=== PATIENT | male | born 1960 | race Caucasian/White ===

== ENCOUNTER 2024-01-31 11:16 | Observation (INO) ==
--- NOTE | 2024-01-31 12:09 | Emergency Department Note ---
Impression & Plan Acute pancreatitis, Acute upper abdominal pain, Elevated troponin ED Provider Note NAME: SHELIA VARELA AGE: 63 SEX: M : 1960 ARRIVES VIA: Walk-In INFORMANT: Patient, family member ED PROVIDER(S): Will Mary MD CHIEF COMPLAINT: Abdominal pain, nausea MEDICAL DECISION MAKING: Patient presented due to concern for abdominal pain. IV was established and blood work was obtained patient did receive IV morphine and IV fluids and IV Zofran. EKG and troponin obtained along with CT abdomen pelvis. Blood work shows a white count of 17 with a normal H&H and platelet count. Kidney function is unremarkable. Mild hyponatremia 135 Kos 145 and not DKA. Bilirubin 1.3. This is higher than prior. Patient has normal AST and ALT. Patient's initial troponin is 28. EKG does not show signs of obvious ischemia. Lipase is negative. Patient CT abdomen pelvis does show concern for pancreatitis. No fluid collections. Gallbladder distention but no pericholecystic infiltration. Patient does not have significant right upper quadrant pain. I informed the patient and the patient's family member the findings. They are comfortable plan of care. Patient's pancreatitis may be secondary to the patient's Ozempic use. The patient denies any recent or significant alcohol use I did speak with the on-call hospitalist service Dr. Persaud and the patient was admitted to the medicine service. Discussion w/ other healthcare providers: None Prior /Outside records reviewed: I reviewed a primary care visit from Desiree Ruiz from February 02, 2024. Patient was seen for wellness examination at that time. Known history of depression CAD BPH osteoarthritis hypertension dyslipidemia type 2 diabetes. Patient did have a dose change of his Zoloft from 50 to 100 mg. I did review a cardiac catheterization from Dr. Roberto from July 2023. I discussed the patient has mild to moderate nonocclusive CAD. Differential diagnosis: Appendicitis, testicular torsion, UTI, diverticulitis, obstruction, renal colic, mesenteric adenitis, enteririts, PUD, pancreatitis, biliary pathology, hernia, volvulus, constipation, as well as other pathologies were considered. Diagnostics, as interpreted by me: ECG:Normal sinus rhythm, rate of 63, normal intervals, normal axis no ST elevations. Q waves noted in lead III. Cardiac monitoring: An order was placed for continuous cardiac monitoring. The monitor shows a rate of 72 with sinus rhythm. Patient was placed on pulse oximetry Medical decision rules: None Imaging studies: I informally interpreted the patient's CT abdomen pelvis does not show obvious bowel obstruction with formal report to follow. HPI: Patient presents due to concern for abdominal pain that began on Tuesday. Seem to be worse yesterday slightly improved today but still present. It has been fairly constant located in the lower and right side of the abdomen. Patient denies any blood in the stool no dysuria or hematuria no scrotal pain or swelling. The patient denies any blood in urine or stool. Bowel movement yesterday. The patient denies any prior history of abdominal surgeries. No history of kidney stones. Patient did have nausea and associated dry heaves but denies bringing anything up. The patient does chew tobacco but denies any alcohol or drug use. No falls or trauma. He does relate that he was recently started on Ozempic and has received 5 or 6 total injections with the last 2 being an increased in dosage and he does receive them every Tuesday. PAST MEDICAL HISTORY: See Below PAST SURGICAL HISTORY: See Below SOCIAL HISTORY: See Below HOME MEDICATIONS: See Below ALLERGIES: See Below VITALS: See Below PHYSICAL EXAMINATION: GENERAL: NAD, non-toxic. EYE EXAM: Normal conjunctiva. PERRL, no anisocoria and EOM's grossly intact w/o pain. OROPHARYNX: Moist mucus membranes, grossly normal dentition. NECK: Trachea midline, no stridor. Supple, no nuchal rigidity, no adenopathy, non-tender. No signs of meningismus. FROM of the neck with good chin to chest and neck extension. LUNGS: Clear to auscultation. Normal chest wall mechanics. HEART: NSR, no MRG. ABDOMEN: Abdomen soft, non-tender, no masses, no rebound or guarding. BACK: No CVA TTP. SKIN: No rashes and no bruising. UPPER EXTREMITIES: Upper extremities are grossly normal. LOWER EXTREMITIES: Grossly normal, no edema. NEURO EXAM: A&O x3, cranial nerves II-XII grossly intact, normal speech, moves all 4 extremities. 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) Anxiety with depression (Chronic) Hypertension (Chronic) Dyslipidemia (Chronic) Type 2 diabetes mellitus (Chronic) Routine adult health maintenance (Chronic) Somatic dysfunction of lower extremity Medical History (Updated 01/31/24 @ 19:10 by Will Mary MD) History of left heart catheterization History of broken leg Dyslipidemia Osteoarthritis Hypertension Surgical History No history of previous surgery Family History Father Myocardial infarction Mother Ovarian cancer Brother Liver cancer Denies family history of Colon cancer Prostate cancer Breast cancer Social History Smoking Status: Never smoker Tobacco Type: Smokeless Tobacco (Dip or Chew) Age Started Using Tobacco: 16; Age Quit Using Tobacco: 49; packs per day: 1; Cigarettes Per Day: 20; Second Hand Exposure: No; Do You Dip or Chew Tobacco: Yes; Hx Alcohol Use: Yes Alcohol type: beer Alcohol Intake Frequency: Monthly or Less Hx Substance Use: No Preferred Language: Malawian Communication Ability: Effective Visual Impairment: No Limitations Hearing Ability: Normal Health Advocate Required: No Beliefs That Will Affect Care: None marital status: Current Living Situation: Alone current occupational status: employed current occupation: Human Resources Temp Feels Safe at Home: Yes Safety Concerns: Feels Safe At This Time Childhood Exposure to Second-Hand Smoke: Yes Diet: regular caffeine: Yes during the past year weight has: decreased > 10 lbs Dental Care, Regularly: Yes Physical Activity Frequency: Does not Exercise Seatbelt Use: always Sunscreen Use: Yes Assistive Devices: Glasses Allergies Allergies Allergy/AdvReac Type Severity Reaction Status Date / Time hydrochlorothiazide AdvReac Mild Verified 01/06/24 14:50 Home Meds Home Medications Medication Instructions Recorded Confirmed empagliflozin 25 mg tablet 25 mg PO DAILY 01/31/24 01/31/24 (Jardiance) insulin glargine 100 unit/mL (3 12 unit subcut PM 05/28/24 05/28/24 mL) subcutaneous pen (Basaglar KwshaheenPen U-100 Insulin) meloxicam 15 mg tablet 15 mg PO DAILY 01/31/24 01/31/24 Previous Rx's Medication Instructions Recorded fluticasone propionate 50 1 spray intranasal BID #16 grams 10/08/22 mcg/actuation nasal spray,suspension amlodipine 5 mg tablet 5 mg PO DAILY #30 tabs 07/07/23 aspirin 81 mg chewable tablet 81 mg PO DAILY #90 tabs 07/15/23 amitriptyline 50 mg tablet 50 mg PO DAILY #90 tabs 07/19/23 atorvastatin 10 mg tablet 10 mg PO DAILY #90 tabs 09/16/23 metoprolol tartrate 50 mg tablet 50 mg PO BID #180 tabs 09/20/23 hydrochlorothiazide 50 mg tablet 50 mg PO DAILY #30 tabs 10/06/23 glipizide 5 mg tablet, extended 5 mg PO BID #90 tabs 10/31/23 release 24 hr lisinopril 20 mg tablet 20 mg PO BID #180 tabs 11/02/23 baclofen 10 mg tablet 10 mg PO BID #60 tabs 12/16/23 diclofenac sodium 1 % topical gel 2 g topical QID PRN pain, moderate 12/16/23 #100 grams semaglutide 0.25 mg or 0.5 mg (2 See Rx Instructions subcut .weekly 12/16/23 mg/3 mL) subcutaneous pen injector #3 mL (Ozempic) potassium chloride 20 mEq 20 meq PO BID #60 tabs 01/03/24 tablet,extended release sertraline 100 mg tablet (Zoloft) 100 mg PO DAILY #90 tabs 01/06/24 tramadol 50 mg tablet 50 mg PO Q6H PRN pain #120 tabs 01/17/24 tamsulosin 0.4 mg capsule (Flomax) 0.8 mg (2 x 0.4 mg) PO DAILY #60 01/26/24 caps Results & Data (ED) Vital Signs Vital Signs - 24 hr 01/31/24 11:17 01/31/24 12:46 01/31/24 12:47 Temperature 36.6 C Temperature Source Oral Pulse Rate 73 77 Pulse Rate from SpO2 Sensor 65 Respiratory Rate 12 20 Respiratory Effort / Characteristics Non-Labored Respiratory Depth Normal Blood Pressure 131/83 Blood Pressure Mean 99 Pulse Oximetry 97 89 L 94 Oxygen Delivery Method Room Air Sepsis Recent Fever Within 48 Hours No Sepsis New/Unexplained Change in Mental Status N/A Sepsis Action Taken by Nursing No Action Required 01/31/24 13:00 01/31/24 13:40 01/31/24 14:00 Temperature Temperature Source Pulse Rate 71 72 68 Pulse Rate from SpO2 Sensor 59 L 72 68 Respiratory Rate 17 18 20 Respiratory Effort / Characteristics Respiratory Depth Blood Pressure Blood Pressure Mean Pulse Oximetry 95 94 94 Oxygen Delivery Method Sepsis Recent Fever Within 48 Hours Sepsis New/Unexplained Change in Mental Status Sepsis Action Taken by Nursing 01/31/24 14:23 01/31/24 14:23 01/31/24 14:30 Temperature Temperature Source Pulse Rate 69 Pulse Rate from SpO2 Sensor 68 Respiratory Rate 19 Respiratory Effort / Characteristics Respiratory Depth Blood Pressure 144/64 H 139/62 Blood Pressure Mean 105 96 Pulse Oximetry 94 Oxygen Delivery Method Sepsis Recent Fever Within 48 Hours Sepsis New/Unexplained Change in Mental Status Sepsis Action Taken by Nursing 01/31/24 14:30 01/31/24 15:00 01/31/24 15:00 Temperature Temperature Source Pulse Rate 68 67 Pulse Rate from SpO2 Sensor 68 67 Respiratory Rate 20 19 Respiratory Effort / Characteristics Respiratory Depth Blood Pressure 152/76 H Blood Pressure Mean 86 Pulse Oximetry 93 92 Oxygen Delivery Method Sepsis Recent Fever Within 48 Hours Sepsis New/Unexplained Change in Mental Status Sepsis Action Taken by Long Term Medications Current Medication List: was personally reviewed by me Laboratory Data Attestation: I reviewed the patient's lab results. 01/31/24 11:33 01/31/24 11:33 Lab Results 01/31/24 01/31/24 Range/Units 11:33 14:20 WBC 17.65 H (4.8-10.8) K/ul RBC 5.76 (4.70-6.10) M/uL Hgb 16.8 (14.0-18.0) g/dl Hct 49.5 (42.0-52.0) % MCV 85.9 (80.0-100.0) fL MCH 29.2 (25.0-34.0) pg MCHC 33.9 (32.0-36.0) g/dL RDW Std Deviation 40.7 (36.4-46.3) fL RDW Coeff of Allyson 13.2 (11.5-14.5) % Plt Count 273 (130-400) K/uL MPV 11.7 (9.4-12.4) fL Immature Gran % (Auto) 0.5 % Neut % (Auto) 86.7 % Lymph % (Auto) 7.1 % Bureau % (Auto) 5.4 % Eos % (Auto) 0.1 % Baso % (Auto) 0.2 % Neut # (Auto) 15.31 H (1.40-6.50) K/uL Lymph # (Auto) 1.26 (1.20-3.40) K/uL Bureau # (Auto) 0.95 H (0.11-0.59) K/uL Eos # (Auto) 0.01 (0.00-0.50) K/uL Baso # (Auto) 0.03 (0.00-0.20) K/uL Immature Gran # (Auto) 0.09 (0.01-0.20) K/uL Sodium 135 L (136-145) mmol/L Potassium 3.5 (3.5-5.1) mmol/L Chloride 93 L (98-107) mmol/L Carbon Dioxide 29 (21-32) mmol/L Anion Gap 13 H (3-11) BUN 11 (6-23) mg/dl Creatinine 0.78 (0.6-1.4) mg/dl Est Cr Clr Drug Dosing 115.4 ml/min Est GFR ( Amer) 112.1 ml/min Est GFR (Non-Af Amer) 96.7 ml/min BUN/Creatinine Ratio 14.1 (10-20) Glucose 145 H (70-99(Fasting)) mg/dl Calcium 9.6 (8.6-10.3) mg/dl Total Bilirubin 1.3 H (0.2-1.0) mg/dl AST 16 (13-39) U/L ALT 18 (7-52) U/L Alkaline Phosphatase 107 H (34-104) U/L Troponin I High Sens 28.3 H 12.8 D (0-20) pg/ml Total Protein 9.1 H (6.0-8.3) gm/dl Albumin 4.9 (3.4-5.0) gm/dl Globulin 4.2 H (2.5-4.0) gm/dl Albumin/Globulin Ratio 1.2 (0.9-2) Triglycerides 86 (0-150) mg/dl Lipase 79 (11-82) U/L Administered Medications Lactated Ringer's (Lr) 1,000 mls @ 200 mls/hr IV .Q5H DANYA Stop: 02/01/24 08:00 Last Admin: 01/31/24 18:31 Dose: 200 mls/hr Documented By: CAIT Insulin Aspart (Insulin Aspart Per Unit Charge) 0 units SC ACHS DANYA Stop: 03/01/24 17:00 Last Admin: 01/31/24 17:54 Dose: Not Given Documented By: CAIT Morphine Sulfate (Morphine Sulfate 2 Mg/Ml Carp) 2 mg IV Q3H PRN PRN Reason: Pain (1,2,3,4,5) & Pre PT Stop: 02/14/24 17:24 Last Admin: 01/31/24 17:52 Dose: 2 mg Documented By: CAIT Polyethylene Glycol (Polyethylene (Miralax) 17 Gm Pack) 17 gm PO DAILY DANYA Stop: 03/01/24 17:00 Last Admin: 01/31/24 18:10 Dose: 17 gm Documented By: CAIT Potassium Chloride (Potassium Chloride Crtab 20 Meq Tabcr) 20 meq PO BID DANYA Stop: 03/01/24 17:00 Last Admin: 01/31/24 17:52 Dose: 20 meq Documented By: CAIT Discontinued Medications Sodium Chloride (Nss) 500 mls @ 999 mls/hr IV .Q31M STA Stop: 01/31/24 13:01 Last Infusion: 01/31/24 13:34 Dose: Infused Documented By: Admin: 01/31/24 12:41 Dose: 999 mls/hr Documented By: DIVINA Lactated Ringer's (Lr) 1,000 mls @ 999 mls/hr IV .Q1H1M ONE Stop: 01/31/24 15:50 Last Infusion: 01/31/24 17:03 Dose: Infused Documented By: Admin: 01/31/24 15:47 Dose: 999 mls/hr Documented By: Infusion: 01/31/24 15:47 Dose: Infused Documented By: Admin: 01/31/24 14:59 Dose: 999 mls/hr Documented By: DIVINA Lactated Ringer's (Lr) 1,000 mls @ 999 mls/hr IV .Q1H1M ONE Stop: 01/31/24 16:42 Last Infusion: 01/31/24 18:39 Dose: Infused Documented By: Admin: 01/31/24 17:20 Dose: 999 mls/hr Documented By: CAIT Ioversol (Optiray 320 100ml) 94 ml IV ONCE ONE Stop: 01/31/24 13:35 Last Admin: 01/31/24 13:34 Dose: 94 ml Documented By: MORE Morphine Sulfate (Morphine Sulfate 4 Mg/Ml 1 Ml Carp\Vial) 4 mg IV NOW STA Stop: 01/31/24 12:32 Last Admin: 01/31/24 12:39 Dose: 4 mg Documented By: DIVINA Morphine Sulfate (Morphine Sulfate 4 Mg/Ml 1 Ml Carp\Vial) 4 mg IV NOW STA Stop: 01/31/24 14:45 Last Admin: 01/31/24 14:53 Dose: 4 mg Documented By: DIVINA Ondansetron HCl (Ondansetron Inj 2 Mg/Ml 2 Ml Vial) 4 mg IV NOW STA Stop: 01/31/24 12:32 Last Admin: 01/31/24 12:39 Dose: 4 mg Documented By: DIVINA Imaging Data Radiologist's Impression: Abdomen/Pelvis CT 01/31/24 12:31 CT OF THE ABDOMEN AND PELVIS WITH CONTRAST CLINICAL HISTORY: Right sided and bilateral lower abdominal pain. COMPARISON STUDY: None. TECHNIQUE: Following IV administration of 94 mL of Optiray, axial images of the abdomen and pelvis were obtained from the lung bases to the proximal femurs. Images were reviewed in the axial, sagittal, and coronal planes. IV contrast was administered without complication. Automated exposure control was utilized for the study. A dose lowering technique was utilized adhering to the principles of ALARA. CT DOSE: 1518.73 mGy.cm FINDINGS: Lung bases are unremarkable. No pneumatosis, free air or portal venous gas is present. There are no hepatic lesions. There is hepatic steatosis. No biliary or pancreatic ductal dilatation is present. The gallbladder is mildly distended without pericholecystic infiltration. Adrenal glands, kidneys and spleen are normal. Stranding centered on the uncinate process extending into the mesentery is noted. No peripancreatic fluid collections are present. There is no CT evidence for pancreatic necrosis. The appendix is normal. Is no evidence for a bowel obstruction. Colonic diverticulosis without evidence for acute diverticulitis. There is no lymphadenopathy. IMPRESSION: 1. Findings suggestive of acute pancreatitis. Stranding centered on the uncinate process extending into the mesentery. No peripancreatic fluid collections. No evidence for gland necrosis. No pancreatic ductal dilatation. 2. Hepatic steatosis. 3. Mild gallbladder distention. No pericholecystic infiltration to strongly suggest acute cholecystitis. 4. Normal appendix. No bowel obstruction. ACT 112: Negative or not required by law. Electronically signed by: Geoffrey Hughes M.D. 01/31/2024 2:02 PM Chest X-Ray 01/31/24 14:51 XR chest 1V portable CLINICAL HISTORY: abdominal pain TECHNIQUE: Single frontal radiograph of the chest was obtained. Comparison: None available at the time of this dictation. FINDINGS: No lines and tubes are seen. The cardiomediastinal silhouette is normal. The lungs are clear. No evidence of pleural effusion or pneumothorax. IMPRESSION: No acute chest disease. ACT 112: Negative or not required by law. Electronically signed by: Miller Beverly M.D. 01/31/2024 3:25 PM Discharge Plan Visit Data Chief Complaint: Abdominal Pain Stated Complaint: ABD PAIN, NAUSEA, LOSS OF APETIE ED Provider: Will Mary Discharge Problem: Acute pancreatitis, Acute upper abdominal pain, Elevated troponin Patient Disposition: Admitted As Inpatient Discharge Instructions Interventions: ED Discharge Assessment Last Done: 01/31/24 16:39 Discharge Problem: Acute pancreatitis Qualifiers: Pancreatitis type: drug induced Acute pancreatitis complication: no infection or necrosis Qualified Code(s): K85.30 - Drug induced acute pancreatitis without necrosis or infection
[2024-01-31] MEDS: MoRPHine SULFATE 4 MG/ML 1 ML CARP\\VIAL IV STA ×2 (12:39→14:53)
[2024-01-31] MEDS: ONDANSETRON INJ 2 MG/ML 2 ML VIAL IV STA (12:39)
[2024-01-31] MEDS: SODIUM CHLORIDE 0.9% 500 ML IV STA (12:41)
[2024-01-31 13:05] LABS: Basophils # (auto) 0.03 K/uL (0.00-0.20); Basophils % (auto) 0.2 %; Eosinophils # (auto) 0.01 K/uL (0.00-0.50); Eosinophils % (auto) 0.1 %; Hematocrit (blood only) 49.5 % (42.0-52.0); Hemoglobin 16.8 g/dl (14.0-18.0); Immature Granulocytes # (auto) 0.09 K/uL (0.01-0.20); Immature Granulocytes % (auto) 0.5 %; Lymphocytes # (auto) 1.26 K/uL (1.20-3.40); Lymphocytes % (auto) 7.1 %; Mean Corpuscular Hemoglobin 29.2 pg (25.0-34.0); Mean Corpuscular Hgb Conc 33.9 g/dL (32.0-36.0); Mean Corpuscular Volume 85.9 fL (80.0-100.0); Mean Platelet Volume 11.7 fL (9.4-12.4); Monocytes # (auto) 0.95 K/uL (0.11-0.59); Monocytes % (auto) 5.4 %; Neutrophils # (auto) 15.31 K/uL (1.40-6.50); Neutrophils % (auto) 86.7 %; Platelet Count 273 K/uL (130-400); RDW Coefficient of Variation 13.2 % (11.5-14.5); RDW Standard Deviation 40.7 fL (36.4-46.3); Red Blood Count 5.76 M/uL (4.70-6.10); White Blood Count 17.65 K/ul (4.8-10.8)
[2024-01-31 13:17] LABS: Albumin Globulin Ratio 1.2 (0.9-2); Albumin Level 4.9 gm/dl (3.4-5.0); BUN Creatinine Ratio 14.1 (10-20); Bilirubin,Total 1.3 mg/dl (0.2-1.0); Calcium 9.6 mg/dl (8.6-10.3); Creatinine Clr Calc Pharmacy 115.4 ml/min; Est GFR (African American) 112.1 ml/min; Est GFR (Non-African American) 96.7 ml/min; Globulin 4.2 gm/dl (2.5-4.0); Potassium 3.5 mmol/L (3.5-5.1); Total Protein 9.1 gm/dl (6.0-8.3)
[2024-01-31 13:24] LABS: Troponin I High Sensitivity 28.3 pg/ml (0-20)
[2024-01-31] MEDS: OPTIRAY 320 100ml IV ONE (13:34)
--- NOTE | 2024-01-31 14:03 | CT Scan Report ---
CT OF THE ABDOMEN AND PELVIS WITH CONTRAST CLINICAL HISTORY: Right sided and bilateral lower abdominal pain. COMPARISON STUDY: None. TECHNIQUE: Following IV administration of 94 mL of Optiray, axial images of the abdomen and pelvis we re obtained from the lung bases to the proximal femurs. Images were reviewed in the axial, sagittal, and coronal planes. IV contrast was administered without complication. Automated exposure control wa s utilized for the study. A dose lowering technique was utilized adhering to the principles of ALARA . CT DOSE: 1518.73 mGy.cm FINDINGS: Lung bases are unremarkable. No pneumatosis, free air or portal venous gas is present. Ther e are no hepatic lesions. There is hepatic steatosis. No biliary or pancreatic ductal dilatation is p resent. The gallbladder is mildly distended without pericholecystic infiltration. Adrenal glands, kid neys and spleen are normal. Stranding centered on the uncinate process extending into the mesentery i s noted. No peripancreatic fluid collections are present. There is no CT evidence for pancreatic necr osis. The appendix is normal. Is no evidence for a bowel obstruction. Colonic diverticulosis without evidence for acute diverticulitis. There is no lymphadenopathy. IMPRESSION: 1. Findings suggestive of acute pancreatitis. Stranding centered on the uncinate process extending in to the mesentery. No peripancreatic fluid collections. No evidence for gland necrosis. No pancreatic ductal dilatation. 2. Hepatic steatosis. 3. Mild gallbladder distention. No pericholecystic infiltration to strongly suggest acute cholecystit is. 4. Normal appendix. No bowel obstruction. ACT 112: Negative or not required by law. Electronically signed by: Geoffrey Hughes M.D. 01/31/2024 2:02 PM
[2024-01-31] MEDS: LACTATED RINGER'S 1,000 ML IV ONE ×2 (14:59→17:20)
--- NOTE | 2024-01-31 15:06 | History & Physical Report ---
Date of Service January 31, 2024 Assessment & Plan (1) Acute pancreatitis: Plan: Meets criteria for diagnosis with epigastric pain on exam and imaging changes although surprisingly lipase is normal ?subacute from Ozempic Recently started Ozempic in December - suspect most likely cause Triglycerides normal No significant alcohol use No obstructive cause on imaging and LFTs relatively unremarkable, repeat CMP in AM Addition 2L LR now then 150ml/hr overnight Clear liquid, T2DM diet - advance as tolerated, patient can direct diet advancement (2) Type 2 diabetes mellitus: Plan: Hemoglobin A1C 8.3 in December, no need to repeat Stop Ozempic Hold glipizide while on clears and treat with sliding scale NovoLog Switch Basaglar for Lantus 12 units HS due to hospital formulary (3) BPH w urinary obs/LUTS: Plan: Continue tamsulosin (4) Anxiety with depression: Plan: Continue sertraline (5) Hypertension: Plan: Amlodipine on hold since August Continue his other anti-hypertensives Plan VTE Prophylaxis - Lovenox 40mg SQ daily Diet - Clear liquid, T2DM Disposition - observation to med/tele Admission and Anticipated Discharge Date Admission Date: January 31, 2024 History of Present Illness Chief Complaint: Abdominal pain Primary Care Provider: Wilfredo Mcclain DO Terence Houser is a 63 year old male who presents to the ER with epigastric pain since Tuesday night. Progressively getting worse. Not eaten anything for the last 1.5 days. Dry heaves yesterday. Severity currently 4-5/10, 8/10 (before receiving any pain medication in the ER). No radiation. Cramps constantly. Feeling like cement in stomach. Mild constipation yesterday, hard stool, last time he went, uncommon for him. Lack of appetite. No current nausea. Associated dizziness this morning. Took all his usual morning medications. Takes Ozempic on Tuesday - just started this in December. No chest pain shortness of breath, odynophagia, dysphagia, sore throat, cough, cold, fever or chills. Alcohol once or twice a month a couple of beers. No marijuana. Allergies Allergy/AdvReac Type Severity Reaction Status Date / Time hydrochlorothiazide AdvReac Mild Verified 01/06/24 14:50 Home Medications Medication Instructions Recorded Confirmed Type fluticasone propionate 50 1 spray intranasal BID #16 grams 10/08/22 01/31/24 Rx mcg/actuation nasal spray,suspension amlodipine 5 mg tablet 5 mg PO DAILY #30 tabs 07/07/23 01/31/24 Rx aspirin 81 mg chewable tablet 81 mg PO DAILY #90 tabs 07/15/23 01/31/24 Rx amitriptyline 50 mg tablet 50 mg PO DAILY #90 tabs 07/19/23 01/31/24 Rx atorvastatin 10 mg tablet 10 mg PO DAILY #90 tabs 09/16/23 01/31/24 Rx metoprolol tartrate 50 mg tablet 50 mg PO BID #180 tabs 09/20/23 01/31/24 Rx hydrochlorothiazide 50 mg tablet 50 mg PO DAILY #30 tabs 10/06/23 01/31/24 Rx glipizide 5 mg tablet, extended 5 mg PO BID #90 tabs 10/31/23 01/31/24 Rx release 24 hr lisinopril 20 mg tablet 20 mg PO BID #180 tabs 11/02/23 01/31/24 Rx baclofen 10 mg tablet 10 mg PO BID #60 tabs 12/16/23 01/31/24 Rx diclofenac sodium 1 % topical gel 2 g topical QID PRN pain, moderate 12/16/23 01/31/24 Rx #100 grams semaglutide 0.25 mg or 0.5 mg (2 See Rx Instructions subcut .weekly 12/16/23 01/31/24 Rx mg/3 mL) subcutaneous pen injector #3 mL (Ozempic) potassium chloride 20 mEq 20 meq PO BID #60 tabs 01/03/24 01/31/24 Rx tablet,extended release sertraline 100 mg tablet (Zoloft) 100 mg PO DAILY #90 tabs 01/06/24 01/31/24 Rx tramadol 50 mg tablet 50 mg PO Q6H PRN pain #120 tabs 01/17/24 01/31/24 Rx tamsulosin 0.4 mg capsule (Flomax) 0.8 mg (2 x 0.4 mg) PO DAILY #60 01/26/24 01/31/24 Rx caps empagliflozin 25 mg tablet 25 mg PO DAILY 01/31/24 01/31/24 History (Jardiance) insulin glargine 100 unit/mL (3 12 unit subcut PM 05/28/24 05/28/24 History mL) subcutaneous pen (Basaglar KwikPen U-100 Insulin) meloxicam 15 mg tablet 15 mg PO DAILY 01/31/24 01/31/24 History 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) Anxiety with depression (Chronic) Hypertension (Chronic) Dyslipidemia (Chronic) Type 2 diabetes mellitus (Chronic) Routine adult health maintenance (Chronic) Somatic dysfunction of lower extremity Medical History (Updated 01/31/24 @ 19:10 by Will aMry MD) History of left heart catheterization History of broken leg Dyslipidemia Osteoarthritis Hypertension Surgical History No history of previous surgery Family History Father Myocardial infarction Mother Ovarian cancer Brother Liver cancer Denies family history of Colon cancer Prostate cancer Breast cancer Social History Smoking Status: Never smoker Tobacco Type: Smokeless Tobacco (Dip or Chew) Age Started Using Tobacco: 16; Age Quit Using Tobacco: 49; packs per day: 1; Cigarettes Per Day: 20; Second Hand Exposure: No; Do You Dip or Chew Tobacco: Yes; Hx Alcohol Use: Yes Alcohol type: beer Alcohol Intake Frequency: Monthly or Less Hx Substance Use: No Preferred Language: Andorran Communication Ability: Effective Visual Impairment: No Limitations Hearing Ability: Normal Geographic Information Systems Director Required: No Beliefs That Will Affect Care: None marital status: Current Living Situation: Alone current occupational status: employed 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 Feels Safe at Home: Yes Safety Concerns: Feels Safe At This Time Childhood Exposure to Second-Hand Smoke: Yes Diet: regular caffeine: Yes during the past year weight has: decreased > 10 lbs Dental Care, Regularly: Yes Physical Activity Frequency: Does not Exercise Seatbelt Use: always Sunscreen Use: Yes Assistive Devices: Glasses Review of Systems Review of Systems: All systems reviewed & are unremarkable except as noted in HPI & below Physical Exam Constitutional: WD/WN, vitals as above Eyes: + anicteric sclerae; normal pupil size ENMT: external ear and nose normal, oropharynx normal Respiratory: normal respiratory effort, lungs clear to auscultation Cardiovascular: RRR, no murmur, no edema Gastrointestinal (Abdomen): Inspection/Auscultation: abdomen normal to in spection; abdomen not distended Percussion/Palpation: + abdomen tender (epigastric) and abdomen soft Musculoskeletal: no cyanosis or clubbing, extremities motor strength 5/5 Skin: no rashes, warm and dry Neurologic: moves all extremities and awake; not confused Psychiatric: A+Ox3, euthymic affect Genitourinary: no CVA tenderness Results & Data Results & Data Vital Signs (Past 12 Hours) Vital Signs Temp Pulse Resp BP Pulse Ox O2 Del Method 01/31/24 14:30 68 20 93 01/31/24 14:30 139/62 01/31/24 14:23 69 19 94 01/31/24 14:23 144/64 H 01/31/24 14:00 68 20 94 01/31/24 13:40 72 18 94 01/31/24 13:00 71 17 95 01/31/24 12:47 94 Room Air 01/31/24 12:46 77 20 89 L 01/31/24 11:17 36.6 C 73 12 131/83 97 Laboratory Results Abnormal lab results 01/31/24 Range/Units 11:33 WBC 17.65 H (4.8-10.8) K/ul Neut # (Auto) 15.31 H (1.40-6.50) K/uL [place] # (Auto) 0.95 H (0.11-0.59) K/uL Sodium 135 L (136-145) mmol/L Chloride 93 L (98-107) mmol/L Anion Gap 13 H (3-11) Glucose 145 H (70-99(Fasting)) mg/dl Total Bilirubin 1.3 H (0.2-1.0) mg/dl Alkaline Phosphatase 107 H (34-104) U/L Troponin I High Sens 28.3 H (0-20) pg/ml Total Protein 9.1 H (6.0-8.3) gm/dl Globulin 4.2 H (2.5-4.0) gm/dl Diagnostic Findings CT OF THE ABDOMEN AND PELVIS WITH CONTRAST CLINICAL HISTORY: Right sided and bilateral lower abdominal pain. COMPARISON STUDY: None. TECHNIQUE: Following IV administration of 94 mL of Optiray, axial images of the abdomen and pelvis were obtained from the lung bases to the proximal femurs. Images were reviewed in the axial, sagittal, and coronal planes. IV contrast was administered without complication. Automated exposure control was utilized for the study. A dose lowering technique was utilized adhering to the principles of ALARA. CT DOSE: 1518.73 mGy.cm FINDINGS: Lung bases are unremarkable. No pneumatosis, free air or portal venous gas is present. There are no hepatic lesions. There is hepatic steatosis. No biliary or pancreatic ductal dilatation is present. The gallbladder is mildly distended without pericholecystic infiltration. Adrenal glands, kidneys and spleen are normal. Stranding centered on the uncinate process extending into the mesentery is noted. No peripancreatic fluid collections are present. There is no CT evidence for pancreatic necrosis. The appendix is normal. Is no evidence for a bowel obstruction. Colonic diverticulosis without evidence for acute diverticulitis. There is no lymphadenopathy. IMPRESSION: 1. Findings suggestive of acute pancreatitis. Stranding centered on the uncinate process extending into the mesentery. No peripancreatic fluid collections. No evidence for gland necrosis. No pancreatic ductal dilatation. 2. Hepatic steatosis. 3. Mild gallbladder distention. No pericholecystic infiltration to strongly suggest acute cholecystitis. 4. Normal appendix. No bowel obstruction. Medications Administered ER Medications Given: Normal saline 500ml bolus Morphine 4mg IV x2 Ondansetron 4mg IV ECG Rate (beats per minute): 63 Rhythm: normal sinus Findings: no acute ischemic change Comparison ECG Date: no prior available Code Status & VTE Plan Code Status Full VTE Prophylaxis Plan VTE Prophylaxis will be ordered: Yes PG Care Time/CCT Total # of Minutes Spent Total Time Spent with Patient: Total time spent is greater than 50% in coordination of care (as documented) at patient's floor/unit and/or counseling patient: Coding Level of Care Code 77608 INT INP/OBS CARE 2/55MIN Diagnoses Acute pancreatitis K85.90 Type 2 diabetes mellitus E11.9 BPH w urinary obs/LUTS N40.1; N13.8 Anxiety with depression F41.8 Primary hypertension I10 Hypertension type: primary hypertension (5) Hypertension Hypertension type: primary hypertension Qualified Code(s): I10 - Essential (primary) hypertension
[2024-01-31 15:18] LABS: Troponin I High Sensitivity 12.8 pg/ml (0-20)
--- NOTE | 2024-01-31 15:27 | XRay Report ---
XR chest 1V portable CLINICAL HISTORY: abdominal pain TECHNIQUE: Single frontal radiograph of the chest was obtained. Comparison: None available at the time of this dictation. FINDINGS: No lines and tubes are seen. The cardiomediastinal silhouette is normal. The lungs are clear. No evid ence of pleural effusion or pneumothorax. IMPRESSION: No acute chest disease. ACT 112: Negative or not required by law. Electronically signed by: Miller Beverly M.D. 01/31/2024 3:25 PM
[2024-01-31] MEDS ORDERED: GLUCAGON FOR INJ 1 MG VIAL SQ PRN (17:01)
[2024-01-31] MEDS ORDERED: CARBOHYDRATES FOR HYPOGLYCEMIA PO PRN (17:01)
[2024-01-31] MEDS ORDERED: GLUCOSE 40% GEL 15 GM TUBE PO PRN (17:01)
[2024-01-31] MEDS ORDERED: GLUCOSE 10 TAB/TUBE PO PRN (17:01)
[2024-01-31] MEDS ORDERED: DEXTROSE 50% 50 ML SYRINGE IV PRN (17:01)
[2024-01-31] MEDS ORDERED: BACLOFEN 10 MG TAB PO PRN (17:01)
[2024-01-31] MEDS ORDERED: ONDANSETRON INJ 2 MG/ML 2 ML VIAL IV PRN (17:25)
--- NOTE | 2024-01-31 17:49 | Electrocardiogram Report ---
Test Reason : Blood Pressure : / mmHG Vent. Rate : 063 BPM Atrial Rate : 063 BPM P-R Int : 198 ms QRS Dur : 102 ms QT Int : 434 ms P-R-T Axes : 058 003 049 degrees QTc Int : 444 ms Normal sinus rhythm Poor R wave progression, consider anterior [place] vs. lead placement vs. LVH Abnormal ECG No previous ECGs available Confirmed by Jey Bailey ([id number]) on 01/31/2024 5:49:11 PM Referred By: REFERRED SELF Confirmed By:Jey Bailey
[2024-01-31] MEDS: POTASSIUM CHLORIDE CRTAB 20 MEQ TABCR PO SCH (17:52)
[2024-01-31] MEDS: MoRPHine SULFATE 2 MG/ML CARP IV PRN (17:52)
[2024-01-31] MEDS: INSULIN ASPART PER UNIT CHARGE SC SCH (17:54)
[2024-01-31] MEDS: POLYETHYLENE (MIRALAX) 17 GM PACK PO SCH (18:10)
[2024-01-31] MEDS: LACTATED RINGER'S 1,000 ML IV SCH (18:31)
[2024-01-31] MEDS: LANTUS PER UNIT CHARGE SQ SCH (20:45)
[2024-01-31] MEDS: FLUTICASONE PROPIONATE NA SPR 16 GM BTL NAE SCH (20:48)
[2024-01-31] MEDS: ENOXAPARIN INJ 40 MG/0.4 ML SYR SQ SCH (20:50)
[2024-01-31] MEDS: lisinopril 20 MG TAB PO SCH (20:50)
[2024-01-31] MEDS: METOPROLOL TARTRATE 50 MG TAB PO SCH (20:51)
[2024-01-31] MEDS: AMITRIPTYLINE HCL 50 MG TAB PO SCH (20:51)
[2024-01-31] MEDS: MoRPHine SULFATE 4 MG/ML 1 ML CARP\\VIAL IV PRN (21:44)
[2024-02-01 07:03] LABS: Basophils # (auto) 0.04 K/uL (0.00-0.20); Basophils % (auto) 0.3 %; Eosinophils # (auto) 0.06 K/uL (0.00-0.50); Eosinophils % (auto) 0.4 %; Hematocrit (blood only) 40.3 % (42.0-52.0); Hemoglobin 13.7 g/dl (14.0-18.0); Immature Granulocytes # (auto) 0.09 K/uL (0.01-0.20); Immature Granulocytes % (auto) 0.6 %; Lymphocytes # (auto) 1.26 K/uL (1.20-3.40); Lymphocytes % (auto) 8.4 %; Mean Corpuscular Hemoglobin 29.1 pg (25.0-34.0); Mean Corpuscular Volume 85.6 fL (80.0-100.0); Mean Platelet Volume 11.1 fL (9.4-12.4); Monocytes # (auto) 1.16 K/uL (0.11-0.59); Monocytes % (auto) 7.8 %; Neutrophils # (auto) 12.31 K/uL (1.40-6.50); Neutrophils % (auto) 82.5 %; Platelet Count 202 K/uL (130-400); RDW Coefficient of Variation 12.9 % (11.5-14.5); RDW Standard Deviation 40.2 fL (36.4-46.3); Red Blood Count 4.71 M/uL (4.70-6.10); White Blood Count 14.92 K/ul (4.8-10.8)
[2024-02-01 07:37] LABS: Total Protein 7.2 gm/dl (6.0-8.3)
[2024-02-01 07:38] LABS: Albumin Globulin Ratio 1.1 (0.9-2); Albumin Level 3.7 gm/dl (3.4-5.0); BUN Creatinine Ratio 18.4 (10-20); Calcium 8.4 mg/dl (8.6-10.3); Creatinine Clr Calc Pharmacy 183.7 ml/min; Est GFR (African American) 135.7 ml/min; Est GFR (Non-African American) 117.1 ml/min; Globulin 3.5 gm/dl (2.5-4.0); Potassium 3.5 mmol/L (3.5-5.1)
[2024-02-01] MEDS: ATORVASTATIN 10 MG TAB PO SCH (08:16)
[2024-02-01] MEDS: hydroCHLOROthiazide 25 MG TAB PO SCH (08:16)
[2024-02-01] MEDS: TAMSULOSIN HCL 0.4 MG CAP PO SCH (08:16)
[2024-02-01] MEDS: ASPIRIN 81 MG CHEW PO SCH (08:19)
[2024-02-01] MEDS: SERTRALINE HCL 100 MG TABLET PO SCH (08:21)
[2024-02-01] MEDS: MELOXICAM 7.5 MG TAB PO SCH (08:22)
[2024-02-01] MEDS ORDERED: EMPAGLIFLOZIN 25 MG TAB PO SCH (09:00)
[2024-02-01] MEDS: ACETAMINOPHEN 500 MG TAB PO PRN (09:22)
[2024-02-01] MEDS ORDERED: POLYETHYLENE (MIRALAX) 17 GM PACK PO PRN (14:17)
--- NOTE | 2024-02-01 14:30 | Hospitalist Progress Note ---
<Statement entered by Michell Heard MD - 02/01/24 19:41> I personally reviewed the chart including notes, vitals, labs, studies. Agree with documentation below as per Michell ovalle PA-C. Ozempic could have been the culprit given the time course with recent initiation. I note he also has hydrochlorothiazide and meloxicam on his home med list which can also induce pancreatitis. Date of Service February 01, 2024 Assessment & Plan (1) Acute pancreatitis: Plan: - Presented with epigastric pain and nausea that began 01/29/2024 that progressively worsened. - Meets criteria for diagnosis with epigastric pain on exam and imaging changes although surprisingly lipase is normal -- Recently started Ozempic in December --> ?subacute from Ozempic. -- Pancreatitis is a rare adverse reaction of Ozempic with incidence of 0.1- 0.3%. - LFTs relatively unremarkable on admission, LFTs normalized 02/01/2024. - No obstructive cause on imaging. - Triglycerides normal. - No significant alcohol use. - Advance to low-fat low fiber diet 01/2924. Continue to advance as tolerated, patient can direct diet advancement. (2) Type 2 diabetes mellitus: Plan: - Hemoglobin A1C 8.3 in December, no need to repeat - Stop Ozempic - Hold glipizide and treat with sliding scale NovoLog until patient is well tolerating oral diet. - Switch Basaglar for Lantus 12 units HS due to hospital formulary (3) BPH w urinary obs/LUTS: Plan: Continue tamsulosin (4) Anxiety with depression: Plan: Continue sertraline (5) Hypertension: Plan: - Amlodipine on hold since August - Continue his other anti-hypertensives Plan Updated multiple family members at bedside. Advanced diet to low-fat low fiber. VTE Prophylaxis - Lovenox 40mg SQ daily CODE STATUS: Full code Admission and Anticipated Discharge Date Admission Date: January 31, 2024 Subjective Patient seen and evaluated at bedside with family. He reports he is feeling better, with minimal epigastric/left upper quadrant abdominal tenderness. He states that he has an appetite and is ready to try advancing his diet. Will advance to low-fat low fiber diet and monitor how the patient tolerates it. Otherwise, patient has no complaints. Denies urinary symptoms, shortness of breath, chest pain, lightheadedness. Reports last bowel movement was 01/30/2024. Physical Exam Physical Exam: General: No acute distress, nondiaphoretic, well-developed, well-nourished. Skin: The skin was without rashes, erythema, edema, or bruising. Cardiac: Regular rate and rhythm without murmurs gallops or rubs. Pulm: Clear to auscultation bilaterally without wheezes, rales or rhonchi. No retractions or accessory muscle use. Abdominal: Minimal epigastric tenderness to palpation. Soft, nondistended, without masses or organomegaly. No guarding or rebound tenderness. Positive bowel sounds. Neuro: A&O x3. No focal neurological deficits. Results & Data Results & Data Vital Signs (Past 12 Hours) Vital Signs Temp Pulse Resp BP Pulse Ox O2 Del Method 02/01/24 13:19 36.8 C 69 16 186/89 H 95 Room Air 02/01/24 07:21 36.8 C 83 16 175/83 H 96 Room Air Laboratory Results Reviewed CBC Reviewed CMP Diagnostic Findings Reviewed CXR 01/31/2024 FINDINGS: No lines and tubes are seen. The cardiomediastinal silhouette is normal. The lungs are clear. No evidence of pleural effusion or pneumothorax. IMPRESSION: No acute chest disease. Reviewed CT abdomen/pelvis 01/31/2024 FINDINGS: Lung bases are unremarkable. No pneumatosis, free air or portal venous gas is present. There are no hepatic lesions. There is hepatic steatosis. No biliary or pancreatic ductal dilatation is present. The gallbladder is mildly distended without pericholecystic infiltration. Adrenal glands, kidneys and spleen are normal. Stranding centered on the uncinate process extending into the mesentery is noted. No peripancreatic fluid collections are present. There is no CT evidence for pancreatic necrosis. The appendix is normal. Is no evidence for a bowel obstruction. Colonic diverticulosis without evidence for acute diverticulitis. There is no lymphadenopathy. IMPRESSION: 1. Findings suggestive of acute pancreatitis. Stranding centered on the uncinate process extending into the mesentery. No peripancreatic fluid collections. No evidence for gland necrosis. No pancreatic ductal dilatation. 2. Hepatic steatosis. 3. Mild gallbladder distention. No pericholecystic infiltration to strongly suggest acute cholecystitis. 4. Normal appendix. No bowel obstruction. PG Care Time/CCT Total # of Minutes Spent Total Time Spent with Patient: Total time spent is greater than 50% in coordination of care (as documented) at patient's floor/unit and/or counseling patient: Coding Level of Care Code 24646 SUB INP/OBS CARE 350MIN Diagnoses Acute pancreatitis K85.90 Type 2 diabetes mellitus E11.9 BPH w urinary obs/LUTS N40.1; N13.8 Anxiety with depression F41.8 Primary hypertension I10 Hypertension type: primary hypertension (5) Hypertension Hypertension type: primary hypertension Qualified Code(s): I10 - Essential (primary) hypertension
[2024-02-01 20:07] VITALS: RESP 18
[2024-02-02 07:41] VITALS: BP 152/78; PULSE 97; TEMP 98.1; O2SAT 95
[2024-02-02 07:52] LABS: Hemoglobin 14.9 g/dl (14.0-18.0); Mean Corpuscular Hemoglobin 29.5 pg (25.0-34.0); Mean Corpuscular Hgb Conc 34.7 g/dL (32.0-36.0); Mean Corpuscular Volume 85.1 fL (80.0-100.0); Mean Platelet Volume 11.2 fL (9.4-12.4); Platelet Count 240 K/uL (130-400); RDW Coefficient of Variation 12.6 % (11.5-14.5); RDW Standard Deviation 39.4 fL (36.4-46.3); Red Blood Count 5.05 M/uL (4.70-6.10); White Blood Count 11.91 K/ul (4.8-10.8)
[2024-02-02 08:15] LABS: Albumin Level 4.1 gm/dl (3.4-5.0); BUN Creatinine Ratio 22.2 (10-20); Calcium 8.9 mg/dl (8.6-10.3); Creatinine Clr Calc Pharmacy 166.7 ml/min; Est GFR (African American) 130.4 ml/min; Est GFR (Non-African American) 112.5 ml/min; Globulin 4.1 gm/dl (2.5-4.0); Potassium 3.3 mmol/L (3.5-5.1); Total Protein 8.2 gm/dl (6.0-8.3)
[2024-02-02] MEDS: POTASSIUM CHLORIDE CRTAB 20 MEQ TABCR PO STA (09:33)
--- NOTE | 2024-02-02 13:48 | Discharge Summary ---
Date of Service February 02, 2024 Admission HPI Per Admitting Provider Terence Houser is a 63 year old male who presents to the ER with epigastric pain since Tuesday night. Progressively getting worse. Not eaten anything for the last 1.5 days. Dry heaves yesterday. Severity currently 4-5/10, 8/10 (before receiving any pain medication in the ER). No radiation. Cramps constantly. Feeling like cement in stomach. Mild constipation yesterday, hard stool, last time he went, uncommon for him. Lack of appetite. No current nausea. Associated dizziness this morning. Took all his usual morning medications. Takes Ozempic on Tuesday - just started this in December. No chest pain shortness of breath, odynophagia, dysphagia, sore throat, cough, cold, fever or chills. Alcohol once or twice a month a couple of beers. No marijuana. Principal Diagnosis Acute pancreatitis, likely medication related Discharge Exam PHYSICAL EXAMINATION Last 24h vital signs reviewed, see documentation in flowsheet General: comfortable appearing, no distress HEENT: Normocephalic, atraumatic, pupils round and equal, sclerae anicteric, no conjunctival injection, moist mucus membranes Lungs: Normal respiratory effort. Clear to auscultation bilaterally. No RRW Heart: Regular rate and rhythm, no murmurs. No JVD Abdomen: Soft, nontender, nondistended. Bowel sounds present. Extremities: Warm, dry, well-perfused. No extremity edema. Neuro: Alert and oriented x 4, face symmetric, moves 4 extremities well Psych: Normal affect and behavior Discharge Data Allergies Allergy/AdvReac Type Severity Reaction Status Date / Time hydrochlorothiazide AdvReac Mild Verified 01/06/24 14:50 Consultations 01/31/24 14:44 ED Decision to Admit Stat Ordered Studies 01/31/24 12:31 CT abd pelvis IV con only Stat Abdomen/Pelvis CT 01/31/24 12:31 CT OF THE ABDOMEN AND PELVIS WITH CONTRAST CLINICAL HISTORY: Right sided and bilateral lower abdominal pain. COMPARISON STUDY: None. TECHNIQUE: Following IV administration of 94 mL of Optiray, axial images of the abdomen and pelvis were obtained from the lung bases to the proximal femurs. Images were reviewed in the axial, sagittal, and coronal planes. IV contrast was administered without complication. Automated exposure control was utilized for the study. A dose lowering technique was utilized adhering to the principles of ALARA. CT DOSE: 1518.73 mGy.cm FINDINGS: Lung bases are unremarkable. No pneumatosis, free air or portal venous gas is present. There are no hepatic lesions. There is hepatic steatosis. No biliary or pancreatic ductal dilatation is present. The gallbladder is mildly distended without pericholecystic infiltration. Adrenal glands, kidneys and spleen are normal. Stranding centered on the uncinate process extending into the mesentery is noted. No peripancreatic fluid collections are present. There is no CT evidence for pancreatic necrosis. The appendix is normal. Is no evidence for a bowel obstruction. Colonic diverticulosis without evidence for acute diverticulitis. There is no lymphadenopathy. IMPRESSION: 1. Findings suggestive of acute pancreatitis. Stranding centered on the uncinate process extending into the mesentery. No peripancreatic fluid collections. No evidence for gland necrosis. No pancreatic ductal dilatation. 2. Hepatic steatosis. 3. Mild gallbladder distention. No pericholecystic infiltration to strongly suggest acute cholecystitis. 4. Normal appendix. No bowel obstruction. ACT 112: Negative or not required by law. Electronically signed by: Geoffrey Hughes M.D. 01/31/2024 2:02 PM Chest X-Ray 01/31/24 14:51 XR chest 1V portable CLINICAL HISTORY: abdominal pain TECHNIQUE: Single frontal radiograph of the chest was obtained. Comparison: None available at the time of this dictation. FINDINGS: No lines and tubes are seen. The cardiomediastinal silhouette is normal. The lungs are clear. No evidence of pleural effusion or pneumothorax. IMPRESSION: No acute chest disease. ACT 112: Negative or not required by law. Electronically signed by: Miller Beverly M.D. 01/31/2024 3:25 PM Hospital Course (1) Acute pancreatitis: - Presented with epigastric pain and nausea that began 01/29/2024 that progressively worsened. - Meets criteria for diagnosis with epigastric pain on exam and imaging changes although lipase normal -- Recently started Ozempic in December --> ?subacute from Ozempic. -- Pancreatitis is a rare adverse reaction of Ozempic with incidence of 0.1- 0.3%. - LFTs minimally abnormal on admission, LFTs normalized 02/01/2024. - No obstructive cause on imaging. - Triglycerides normal. - No significant alcohol use. - Advanced to low-fat low fiber diet 02/01/24 and tolerated well Ozempic may have been trigger especially given time course He is on several other medications that have been associated with acute pancreatitis, however: HCTZ, meloxicam, empagliflozin, lisinopril -HCTZ / potassium stopped and replaced with spironolactone No gallstones visualized on CT, consider follow up ultrasound as outpatient GI referral if persistence/reoccurrence (2) Type 2 diabetes mellitus: - Hemoglobin A1C 8.3 in December, no need to repeat - Stop Ozempic - Follow up in primary care to discuss alternative agents - has appt soon (3) BPH w urinary obs/LUTS: Continue tamsulosin (4) Anxiety with depression: Continue sertraline (5) Hypertension: - Amlodipine on hold since August - HCTZ / potassium stopped and replaced with spironolactone - recommend BMP on follow up to check potassium, renal function. If stable may increase spironolactone dose Total Time Total Time Spent Total Time Spent (In Minutes): <30 minutes Discharge Plan Discharge Items Patient Disposition: Home - Self-Care Reason For Visit: ACUTE PANCREATITIS Discharge Diagnosis: Acute drug-induced pancreatitis, possibly triggered by ozempic Activity: Resume your previous activity Non-emergency contact: Primary Care Provider Call non-emergency contact if: you have any medication questions, your pain is worsening and you have a fever Follow-up/Referrals: Wilfredo Mcclain, [Primary Care Provider] - 02/10/24 2:40 pm Diet: Carb Consistent or DM2, Low Fat and Low Sodium (2gm) Addtl Attending Provider Instructions: You were treated for mild acute pancreatitis This may have been triggered by ozempic -hold ozempic and follow up with your primary care doctor - follow up with him to discuss potential other options for your diabetes You take other medications that are also associated with pancreatitis - hydrochlorothiazide Jardiance (empagliflozin) and meloxicam (Mobic) -I am replacing the hydrochlorothiazide with a different diuretic called spironolactone. This will help your body hold on to potassium as well -stop hydrochlorothiazide and potassium -ask your doctor to check your labs when you follow up - (electrolytes, kidney function). If these are stable he may want to increase the dose of spironolactone I think you can stay on the mobic and Jardiance for now, but if there are ongoing pancreas problems despite the above changes, it should be stopped. Follow a low fat diet and avoid alcohol until your pancreatitis completely resolves Pending Studies at Discharge: No Stand-Alone Forms: My [facility], Work/School Release, Smoking Cessation Medications and DC Order Prescriptions: New spironolactone 25 mg tablet 25 mg PO DAILY Qty: 30 0RF Continued amlodipine 5 mg tablet 5 mg PO DAILY Qty: 30 11RF Hold Instructions: Home Medication placed on hold at Doctor's office amitriptyline 50 mg tablet 50 mg PO DAILY Qty: 90 3RF atorvastatin 10 mg tablet 10 mg PO DAILY Qty: 90 1RF metoprolol tartrate 50 mg tablet 50 mg PO BID Qty: 180 1RF glipizide 5 mg tablet extended release 24hr 5 mg PO BID Qty: 90 3RF lisinopril 20 mg tablet 20 mg PO BID Qty: 180 5RF tramadol 50 mg tablet 50 mg PO Q6H PRN (Reason: pain) Qty: 120 0RF tamsulosin [Flomax] 0.4 mg capsule 0.8 mg PO DAILY Qty: 60 5RF baclofen 10 mg tablet 10 mg PO BID Qty: 60 2RF diclofenac sodium 1 % gel 2 g topical QID PRN (Reason: pain, moderate) Qty: 100 2RF fluticasone propionate 50 mcg/actuation spray,suspension 1 spray intranasal BID Qty: 16 0RF Rx Instructions: administer into each nostril aspirin 81 mg tablet,chewable 81 mg PO DAILY Qty: 90 3RF sertraline [Zoloft] 100 mg tablet 100 mg PO DAILY Qty: 90 3RF meloxicam 15 mg tablet 15 mg PO DAILY Rx Instructions: Take 1 tablet by mouth once daily insulin glargine [Basaglar KwikPen U-100 Insulin] 100 unit/mL (3 mL) insulin pen 12 unit subcut PM Rx Instructions: INJECT 12 UNITS SUBCUTANEOUSLY ONCE DAILY IN THE EVENING Jardiance 25 mg tablet 25 mg PO DAILY Discontinued potassium chloride 20 mEq tablet extended release 20 meq PO BID Qty: 60 2RF hydrochlorothiazide 50 mg tablet 50 mg PO DAILY Qty: 30 11RF Ozempic 0.25 mg or 0.5 mg (2 mg/3 mL) pen injector See Rx Instructions subcut .weekly Qty: 3 2RF Rx Instructions: start 0.25 mg weekly x 4 weeks, then 0.5 mg weekly Discharge Orders: Discharge Order (Routine); Ordered 02/02/24 Ordered By: Michell Kemp/Other Patient Handouts: Understanding Pancreatitis Admission Data Admit Date/Time: 01/31/24 15:04 Attending Provider: Michell Heard Admit Provider: Tucker Persaud Primary Care Provider: Wilfredo Mcclain Other Providers: Tucker Persaud Other Interventions: Discharge Summary Assessment (RN) Last Done: 02/02/24 13:17 Coding Level of Care Code 47261 IN/OBS DISCH 30 MIN/LESS Diagnoses Acute pancreatitis K85.90 Type 2 diabetes mellitus E11.9 BPH w urinary obs/LUTS N40.1; N13.8 Anxiety with depression F41.8 Primary hypertension I10 Hypertension type: primary hypertension
== END 2024-02-02 15:35 | disposition home or self-care (01) ==
LOC: ED 11:16 → 3W 11:16 → SUATTDRO 15:04 → 3W 16:39